=== PATIENT | female | born 1960 | race Caucasian/White ===

== ENCOUNTER 2019-04-12 13:57 | Emergency (ER) | payer MEDICAID ==
[~2019-04-12] VITALS: Ht 165.1 cm; Wt 80.9 kg
[2019-04-12 14:08] VITALS: BP 152/73
== END 2019-04-12 14:37 | disposition home or self-care (01) ==
LOC: ED 14:00
DX: K02.9 Dental caries, unspecified (principal); K08.89 Other specified disorders of teeth and supporting structures; F17.210 Nicotine dependence, cigarettes, uncomplicated; I10 Essential (primary) hypertension; Z90.710 Acquired absence of both cervix and uterus
CPT/HCPCS: 99283

== ENCOUNTER 2019-04-28 14:52 | Emergency (ER) | payer MEDICAID ==
[~2019-04-28] VITALS: Ht 167.6 cm; Wt 81.2 kg
--- NOTE | 2019-04-28 15:31 | NUR ---
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
--- NOTE | 2019-04-28 15:56 | NUR ---
FIRST CONTACT WITH PT. PT C/O DIZZY, CHEST PAIN, RT SIDED "GLANDS" SWELLING, PERSITENT COUGH FOR ONE WEEK. PT'S AOX4. RESPS EVEN AND UNLABORED. NSR RATE 60-70'S ON [employer] INSPECTOR AT THIS TIME. ALL MONITORS IN PLACE. CALL LIGHT WITHIN REACH. EDMD AT BEDSIDE TO EVALUATE AT THIS TIME.
[2019-04-28 17:16] VITALS: BP 122/71
--- NOTE | 2019-04-28 17:16 | NUR ---
pt resting in [facility]. pt's aox4. resps even and unlabored. all monitors in place. call light within reach. pt denies any needs or concerns at this time.
--- NOTE | 2019-04-28 17:37 | NUR ---
Patient given discharge instructions and they have confirmed that they understand the instructions. Patient ambulatory with steady gait.
== END 2019-04-28 17:38 | disposition home or self-care (01) ==
LOC: ED 16:51
DX: H65.01 Acute serous otitis media, right ear (principal); J02.8 Acute pharyngitis due to other specified organisms; B97.89 Other viral agents as the cause of diseases classified elsewhere; I10 Essential (primary) hypertension
CPT/HCPCS: 71045; 93005; 99283

== ENCOUNTER 2019-05-01 20:07 | Emergency (ER) | payer MEDICAID ==
[~2019-05-01] VITALS: Ht 165.1 cm; Wt 80.8 kg
[2019-05-01 20:24] VITALS: BP 153/64
--- NOTE | 2019-05-01 20:33 | NUR ---
GEOSPATIAL INFORMATION SCIENTIST: FLU SWAB DONE AND SENT TO LAB
[2019-05-01 21:08] LABS: RAPID INFLUENZA A POSITIVE (Negative); RAPID INFLUENZA B Negative (Negative)
== END 2019-05-01 21:49 | disposition home or self-care (01) ==
LOC: ED 21:08
DX: J10.1 Influenza due to other identified influenza virus with other respiratory manifestations (principal); H66.91 Otitis media, unspecified, right ear; I10 Essential (primary) hypertension; F17.210 Nicotine dependence, cigarettes, uncomplicated
CPT/HCPCS: 87400; 99283

== ENCOUNTER 2019-08-09 08:34 | Emergency (ER) | payer MEDICAID ==
[~2019-08-09] VITALS: Ht 165.1 cm; Wt 77.0 kg
[2019-08-09 08:39] VITALS: BP 120/82
--- NOTE | 2019-08-09 09:34 | NUR ---
received bedside report from MIKY Delgado. PER REPORT PT C/O SINUS CONGESTION AND HAD THE FLU FOR WEEKS. PT TESTED FOR COVID.
[2019-08-09] MEDS ORDERED: IBUPROFEN 600 MG TABLET ONE (09:44)
[2019-08-09] MEDS ORDERED: IBUPROFEN 600 MG TABLET PO ONE (10:00)
== END 2019-08-09 10:36 | disposition home or self-care (01) ==
LOC: ED 10:21
DX: J06.9 Acute upper respiratory infection, unspecified (principal); Z20.828 Contact with and (suspected) exposure to other viral communicable diseases; H69.83 Other specified disorders of Eustachian tube, bilateral; R51 Headache; R09.81 Nasal congestion; F17.200 Nicotine dependence, unspecified, uncomplicated; I10 Essential (primary) hypertension; Z90.710 Acquired absence of both cervix and uterus; Z90.89 Acquired absence of other organs
CPT/HCPCS: 99283; U0001

== ENCOUNTER 2019-08-13 09:19 | Emergency (ER) | payer MEDICAID ==
[~2019-08-13] VITALS: Ht 165.1 cm; Wt 75.2 kg
--- NOTE | 2019-08-13 10:31 | NUR ---
PT CAME IN CO OF [place] X 1 WEEK. PT ALSO STATES SHE HAS BEEN HAVING "DIZZY SPELLS". PT HAS TRIED TO TAKE DRAMAMINE AND IT DOESNT SEEM TO HELP. EKG HAS BEEN COMPLETE. LABS DRAWN. PT IS RESTING IN [facility] CONNECTED TO MONITORING EQUIPMENT. CALL LIGHT WITHIN REACH. BLANKET PROVIDED.
[2019-08-13] MEDS ORDERED: ONDANSETRON ODT 4 MG ONE (10:45)
[2019-08-13 10:47] VITALS: BP 104/76
[2019-08-13] MEDS ORDERED: ONDANSETRON ODT 4 MG PO ONE (11:00)
[2019-08-13 11:06] LABS: ANION GAP 7 mmol/L (5-15); CALCIUM 9.5 mg/dL (8.5-10.1); CHLORIDE 104 mmol/L (98-107); CREATININE 1.13 mg/dL (0.55-1.02)
[2019-08-13 11:08] LABS: BASOPHILS # (AUTO) 0.04 x10^3/uL (0-0.1); BASOPHILS % (AUTO) 1 % (0-1); EOSINOPHILS # (AUTO) 0.11 x10^3/uL (0-0.4); EOSINOPHILS % (AUTO) 1 % (1-7); LYMPHOCYTES # (AUTO) 2.86 x10^3/uL (1-3.4); LYMPHOCYTES % (AUTO) 39 % (22-44); MD NO; MEAN CORPUSCULAR HEMOGLOBIN 30.4 pg (27.0-34.8); MEAN CORPUSCULAR HGB CONC 33.6 g/dL (32.4-35.8); MEAN CORPUSCULAR VOLUME 90.4 fL (80-100); MEAN PLATELET VOLUME 8.4 fL (7.4-10.4); MONOCYTES # (AUTO) 0.38 x10^3/uL (0.2-0.8); MONOCYTES % (AUTO) 5 % (2-9); NEUTROPHILS # (AUTO) 3.91 x10^3/uL (1.8-6.8); NEUTROPHILS % (AUTO) 54 % (42-75); PLATELET COUNT 294 x10^3/uL (130-400); RED CELL DISTRIBUTION WIDTH 14.2 % (9.6-15.2)
--- NOTE | 2019-08-13 11:11 | NUR ---
ALL TESTS RESULTED. PT IS UP FOR RECHECK AT THIS TIME.
--- NOTE | 2019-08-13 11:12 | NUR ---
PT REPORT RELIEF OF NAUSEA AFTER MEDS.
== END 2019-08-13 11:51 | disposition home or self-care (01) ==
LOC: ED 10:00
DX: J06.9 Acute upper respiratory infection, unspecified (principal); N17.9 Acute kidney failure, unspecified; E86.0 Dehydration; R42 Dizziness and giddiness; R19.7 Diarrhea, unspecified; R51 Headache; R11.2 Nausea with vomiting, unspecified; H92.02 Otalgia, left ear; F41.9 Anxiety disorder, unspecified; F17.210 Nicotine dependence, cigarettes, uncomplicated; I10 Essential (primary) hypertension
CPT/HCPCS: 36415; 71045; 80048; 85025; 93005; 99285; Q0162

== ENCOUNTER 2020-03-14 18:45 | Emergency (ER) | payer MEDICAID ==
[~2020-03-14] VITALS: Ht 165.1 cm; Wt 70.9 kg
[2020-03-14] MEDS ORDERED: PROPARACAINE OPHTH 0.5%, 15ML EACHEYE STA (19:02)
[2020-03-14] MEDS ORDERED: FLUORESCEIN OPHTHALMIC 1 MG STRIP EACHEYE ONE (19:30)
[2020-03-14] MEDS ORDERED: DIPHENHYDRAMINE 25 MG CAPSULE PO ONE (22:30)
[2020-03-14] MEDS ORDERED: DIPHENHYDRAMINE 25 MG CAPSULE ONE (22:36)
[2020-03-14 22:38] VITALS: BP 161/59
== END 2020-03-14 23:31 | disposition home or self-care (01) ==
LOC: ED 22:40
DX: L24.9 Irritant contact dermatitis, unspecified cause (principal); R21 Rash and other nonspecific skin eruption; H92.09 Otalgia, unspecified ear; I10 Essential (primary) hypertension; F17.200 Nicotine dependence, unspecified, uncomplicated; Z90.710 Acquired absence of both cervix and uterus; Z90.89 Acquired absence of other organs
CPT/HCPCS: 99284; J7512; Q0163; 99283